=== PATIENT | female | born 1975 | race American Indian/Alaskan Native ===

== ENCOUNTER 2018-02-20 20:45 | Inpatient (IN) | payer MEDICAID ==
[2018-02-20] MEDS ORDERED: Penicillin G Potassium 5 MU in Dextrose 5% In Water 50 ML IV ONE ×2 (22:20→22:22)
[2018-02-20] MEDS: Lactated Ringer's 1,000 ML IV SCH (22:45)
[2018-02-20] MEDS ORDERED: Penicillin G 5 Million Unit Vial IVPB ONE (23:07)
[2018-02-20 23:17] LABS: BASO # 0.1 K/uL (0.0-0.2); BASO % 0.6 % (0.0-2.0); EOS % 0.3 % (0.0-4.0); HEMOGLOBIN 12.6 g/dL (11.0-16.0); LYMPH # 3.3 K/uL (1.0-4.3); MEAN CELL VOLUME 70.8 fL (81.0-99.0); MEAN CORPUSCULAR HGB CONC 33.8 g/dL (33.0-37.0); MEAN PLATELET VOLUME 9.2 fL (7.2-11.7); MONO # 0.8 K/uL (0.0-0.8); MONO % 6.3 % (0.0-10.0); NEUT % 65.8 % (50.0-75.0); NRBC % 0.2 % (0.0-2.0); RBC 5.24 Mil/uL (3.80-5.20); RED CELL DISTRIBUTION WIDTH 14.8 % (11.5-14.5); WHITE BLOOD COUNT 12.1 K/uL (4.8-10.8)
[2018-02-20 23:21] LABS: SQUAMOUS EPITHIAL 2 /hpf (0-5); URINE BACTERIA FEW (<OCC); URINE BILIRUBIN NEGATIVE (NEGATIVE); URINE BLOOD NEGATIVE (NEGATIVE); URINE CLARITY Clear (Clear); URINE COLOR Yellow (YELLOW); URINE GLUCOSE (UA) NORMAL (Normal); URINE PROTEIN NEGATIVE (NEGATIVE); URINE UROBILINOGEN NORMAL mg/dL (0.2-1.0)
[2018-02-20 23:22] LABS: URINE LEUKOCYTE ESTERASE 1+ Leu/uL (Negative)
[2018-02-20 23:29] LABS: ALBUMIN 3.1 g/dL (3.5-5.0); ALT/SGPT 35 U/L (9-52); AST/SGOT 31 U/L (14-36); BLOOD UREA NITROGEN 14 mg/dL (7-17); CALCIUM 9.5 mg/dl (8.6-10.4); GFR NON-AFRICAN AMERICAN > 60; PROTHROMBIN TIME 10.6 SECONDS (9.7-12.2); URIC ACID 5.3 mg/dL (2.2-7.5)
[2018-02-20 23:44] VITALS: BMI 34.7
--- NOTE | 2018-02-21 02:24 | OBHP ---
Datetime: 02/20/2018 22:05 IP Adm Impression: Term, intrauterine IP Adm Impression Other: Advanced cervical dilatation IP Admit Plan: Admit to unit; Initiate labor protocol Admit Comment, IP Provider: ENA diplomatic interpreter/translator ID [id number]. Patient speaks Niuean Creole 42 y.o. , LMP 05/28/17, HARISH 03/04/18, EGA 38w 2d referred from OB clinic from 1700 hours fo r evaluation of elevated BP, 140/90 and 140/92. Patient denies headaches, spots, epigastric or RUQ pa in. This is the first time with elevated BP. Reports (+)BV - this has been throughout the , not new. (+) AFM; denies LOF, VB. Denies Ctx; has sensation of vagina "splitting; ... like the baby i s pressing down, wanting to come out". 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 Parental karyotype normal x 2. ECHO - no structural abnormality. 3) Quantiferon gold (+); CXR(-). 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 P Ob: x 2; both females, both delivered at [facility], [place]. 1997, doesn't remember weight; 201 3, 7lbs. No complications with either delivery. 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 Denies h/o STIs, myomata, ovarian cysts, abnormal Pap PMH: denies PSH: 2016, surgery on neck ..."they removed my thyroid". Denies ever having been on thyroid replac ement therapy. NKDA Meds: not taking vitamins "too hard to swallow" Soc Hx: denies tobacco, illicit drug or EtOH use. x 3 years. Unemployed Fam Hx: Mother alive 62 y.o. DM, HTN. Father - cause unknown. P.E.: as above. WD in NAD. Awake, alert, oriented to time, person and place. Accompanied by dwight wilson Assessment: 42 y.o. P2032, 38w 2d, advanced cervical dilatation. 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 Post wor k up will be necessary. GBS unknown. D/W patient cervical ripening and possible pitocin augmentation. Also D/W patient pain relief options (had epidural with labor and dlivery 2012). Lastly discussed re mote possiblility for delivery. Patient expressed an understanding and agrees with plan for delivery. Category 1 traicng. Clinically stable. BP wnl; no stigmata for pre-eclampsia. Plan: 1) Admit 2) NPO 3) Admission labs, incl pre-eclamptic labs 4) IVFs 5) Cytotec 50 micrograms bucally Q 4h x 2 doses 6) continuous EFM 7) Anticipate vaginal delivery Pelvic Type - PN: Adequate Extremities - PN: Normal Abdomen - PN: Normal Back - PN: Normal Breast - PN: Not Done Lungs - PN: Normal Heart - PN: Normal Thyroid - PN: Not Done Neurologic - PN: Normal HEENT - PN: Normal General - PN: Normal Weight - Estimated: 8lb 8oz Presentation-Admit: Vertex FHR - Baseline A Provider: 140 Membranes, Provider: Intact Contraction Comments Provider: none Comments, ACOG Physical Exam: Abdomen: Gravid. Sof.t Non tender in all quadrants. Fundal height 39 c m. All other systems reviewed and are negative. Gestation - Est Wks by US: 38w 2d IP Hx Assessment: The History has been Reviewed and is Current EGA AdmitDate IP: 38.2 Vital Signs Provider: Reviewed IP Chief Complaint: Signs/Symptoms Gestational HTN NICHD Variability Prov Fetus A: Moderate 6-25bpm NICHD Accel Fetus A IP Provider: 15X15 FHR Category Provider Fetus A: Category I NICHD Decel Fetus A IP Provider: None Dilatation, Provider: 4-5 Effacement, Provider: 30 Station, Provider: -3 Genitourinary Exam: Normal DTRs - PN: Normal
[2018-02-21] MEDS: Penicillin G Potassium 2.5 MU in Dextrose 5% In Water 50 ML IV SCH ×4 (04:00→16:24)
[2018-02-21] MEDS ORDERED: Morphine 1 mg/ml preservative-free Inj(Duramorph) ONE ×2 (07:27→19:32)
[2018-02-21] MEDS ORDERED: Phenylephrine 10 mg/ml Inj ONE (07:34)
[2018-02-21] MEDS ORDERED: Propofol 10 mg/ml Inj (20 ML) ONE (07:34)
[2018-02-21] MEDS ORDERED: Succinylcholine Chloride 20 mg/ml Syr (5 ml) IV ONE (08:15)
--- NOTE | 2018-02-21 10:17 | OBPN ---
Datetime: 02/21/2018 10:12 IP Progress Impression: Normal progression of labor IP Informed Consent Obtain: Vaginal Delivery IP Procedures: Sterile Vag Exam IP Progress Plan: Continue present management FHR - Baseline A Provider: 140 IP Progress Note Comment: patient seen and examined FHR Category 1, irreg contractions, no change on SVE, will give another cytotec 50mcg buccal for f urther ripening will consider pitocin for augmentation Vital Signs Provider: Reviewed; Within Normal Limits FHR Category Provider Fetus A: Category I NICHD Decel Fetus A IP Provider: None Datetime: 02/20/2018 22:05 Membranes, Provider: Intact Contraction Comments Provider: none Gestation - Est Wks by US: 38w 2d Weight - Estimated: 8lb 8oz Presentation-Admit: Vertex NICHD Accel Fetus A IP Provider: 15X15 NICHD Variability Prov Fetus A: Moderate 6-25bpm Dilatation, Provider: 4-5 Effacement, Provider: 30 Station, Provider: -3
[2018-02-21] MEDS ORDERED: Oxytocin 30 UNIT 30 UNITS/500 ML BAG IV ONE ×2 (15:08→16:37)
--- NOTE | 2018-02-21 16:10 | OBPN ---
Datetime: 02/21/2018 16:06 IP Progress Impression: Normal progression of labor IP Informed Consent Obtain: Vaginal Delivery IP Procedures: Sterile Vag Exam IP Progress Plan: Continue present management; Augmentation FHR - Baseline A Provider: 140 IP Progress Note Comment: s/p 2 cytotec buccal 50mcg x 1 patient received clears will start pitocin for augmentation Vital Signs Provider: Reviewed; Within Normal Limits NICHD Accel Fetus A IP Provider: 15X15 FHR Category Provider Fetus A: Category I NICHD Decel Fetus A IP Provider: None
[2018-02-21] MEDS: Lactated Ringer's 1,000 ML IV SCH (16:30)
[2018-02-21] MEDS ORDERED: Lactated Ringer's 1,000 ML IV ONE (17:49)
[2018-02-21] MEDS ORDERED: ceFAZolin 2 GM in Sodium Chloride 0.9% 100 ML IVPB ONE (17:49)
[2018-02-21] MEDS ORDERED: Sodium Citrate/Citric Acid 15 ml Sol PO ONE (17:49)
--- NOTE | 2018-02-21 17:50 | OBPN ---
Datetime: 02/21/2018 17:44 IP Progress Impression: Arrest of dilatation/descent; Non-reassuring heart rate IP Informed Consent Obtain: Section Delivery; Risks, Benefits and Alternatives Discussed IP Procedures: Sterile Vag Exam IP Progress Plan: Continue present management; Deliver- Section FHR - Baseline A Provider: 145 IP Progress Note Comment: patient was started on pitocin and have recurrent late decelerations counseled patient on risks and benefits and advised devliery via CS due to recurrent lates and [place] k of progression in labor american sign language interpreter [id number] used patient and partner expressed understanding, all questions answered prep for OR Dilatation, Provider: 4-5 Effacement, Provider: 50 Station, Provider: -3 NICHD Decel Fetus A IP Provider: Late
[2018-02-21] MEDS ORDERED: ceFAZolin 1 gm FROZEN Premix 0 GM/0 ML ML IVPB ONE (18:35)
[2018-02-21] MEDS ORDERED: Sodium Citrate/Citric Acid 15 ml Sol ONE (18:36)
[2018-02-21] MEDS ORDERED: Oxytocin 20 units in LR 2,000 ML IV ONE (18:37)
[2018-02-21] MEDS ORDERED: cefOXitin IV 2 gm in Saline 2 GM/50 ML BAG IVPB ONE (18:38)
[2018-02-21] MEDS: cefOXitin IV 2 gm in Saline 2 GM in Sodium Chloride 0.9% 50 ML IV SCH (19:30)
[2018-02-21] MEDS ORDERED: Bupivacaine HCl 15 mg/2 ml Spinal Inj ONE (19:31)
[2018-02-21] MEDS ORDERED: Oxycodone/Acetaminophen 5/325 mg Tab PO PRN (20:50)
--- NOTE | 2018-02-21 21:09 | OBDS ---
MATERNAL INFORMATION Estimated Blood Loss (ml): 800 Provider Comments: primary LTCS via pfannensteil skin incision female born at 8:03pm with apgars 8/9 weighting 8lb 5oz. fluid intake 1500cc, EBL 800cc. ur ine output 200cc. counts correct x 3 [id number] DICTATION LABOR SUMMARY EDC: 03/04/2018 00:00 No. Babies in Womb: 1 LABOR INFORMATION Cervical Ripening Agents: Cytotec @ (Annotations: 50 MCG PO) Group B Beta Strep: Done, Result Unknown STAGES OF LABOR Stage 3 hrs: 0 Stage 3 min: 2 CSECTION DELIVERY Primary Indication: Nonreassuring Status Secondary Indication: Secondary Arrest of Dilatation CSection Incision: Lower Uterine Transverse BABY A INFORMATION Delivery Date/Time: 02/21/2018 20:03 Method of Delivery: Born in Route : No Forceps: N/A Vacuum Extraction: N/A Shoulder Dystocia : No SHOULDER DYSTOCIA BABY A Infant Delivery Date/Time: 02/21/2018 20:03 PRESENTATION/POSITION BABY A Presentation: Cephalic Cephalic Presentation: Vertex Vertex Position: Right Occipital Anterior Breech Presentation: N/A PLACENTA INFORMATION BABY A Placenta Delivery Time : 02/21/2018 20:05 Placenta Method of Delivery: Manual Removal Placenta Status: Delivered SCORES BABY A Heart Rate 1 min: >100 bpm Resp Effort 1 min: Slow, Irregular Reflex Irritability 1 min: Cough or Sneeze or Pulls Away Muscle Tone 1 min: Active Motion Color 1 min: Body [place], Extremities Blue Resuscitation Effort 1 min: Tactile Stimulation SCORE 1 MIN: 8 Heart Rate 5 min: >100 bpm Resp Effort 5 min: Good Cry Reflex Irritability 5 min: Cough or Sneeze or Pulls Away Muscle Tone 5 min: Active Motion Color 5 min: Body [place], Extremities Blue SCORE 5 MIN: 9 INFORMATION BABY A Gestational Age at Delivery: 38.3 Gestational Status: Term Outcome : Liveborn Infant Condition : Stable Sex: Female IDENTIFICATION/MEDS BABY A ID Band Number: [id number] Sensor Number: [id number] WEIGHT/LENGTH BABY A Infant Birthweight (gms): 3775 Weight (lb): 8 Weight (oz): 5 Infant Length Inches: 20.00 Length cms: 50.8 CORD INFORMATION BABY A No. Cord Vessels: 3 Nuchal Cord : N/A Cord Blood Taken: Yes ASSESSMENT BABY A Complications: None Physical Findings at Delivery: Within Normal Limits Infant Respirations: Appears Normal Heavy Duty Custodian/ALS Called : No Transferred To: Nursery
[2018-02-22] MEDS: cefOXitin IV 2 gm in Saline 2 GM in Sodium Chloride 0.9% 50 ML IV SCH ×2 (02:22→09:51)
[2018-02-22] MEDS: Simethicone 80 mg Chewtab PO SCH ×5 (04:31→22:14)
[2018-02-22 09:15] LABS: HEMOGLOBIN 11.1 g/dL (11.0-16.0); MEAN CELL VOLUME 70.7 fL (81.0-99.0); MEAN CORPUSCULAR HEMOGLOBIN 24.4 pg (27.0-31.0); MEAN CORPUSCULAR HGB CONC 34.5 g/dL (33.0-37.0); MEAN PLATELET VOLUME 8.7 fL (7.2-11.7); RBC 4.55 Mil/uL (3.80-5.20); RED CELL DISTRIBUTION WIDTH 14.7 % (11.5-14.5); WHITE BLOOD COUNT 12.1 K/uL (4.8-10.8)
[2018-02-22] MEDS: Prenatal Multivit/Folic Acid/Iron Tab PO SCH (09:28)
--- NOTE | 2018-02-22 09:30 | OBPPN ---
Datetime: 02/22/2018 09:26 PP Nausea Prov: Denies PP Flatus Prov: No PP BM Prov: No PP Breasts Prov: Normal PP Heart Prov: Normal PP Lungs Prov: Normal PP Abdomen/Uterus Prov: Normal PP Lochia Prov: Normal PP Vulva/Perineum Prov: Normal PP CVA Tenderness Prov: Normal PP Extremities Prov: Normal PP Impression Prov: Normal progression PP Plan Prov: Continue present management PP Progress Note Prov: PT DOING WELL NO COMPLAINTS. TOLERATING PO DIET, DENIES N/V. LABS: HGBS 12.6 A/P: S/P PPD#1 1) VSS: AFEBRILE. 2) TOLERATING PO DIET 3) AMBULATING. 4) CONTINUE ROUTINE CARE. IP PP Procedures: None Signature: Helga DUNN
[2018-02-22] MEDS ORDERED: cefOXitin IV 2 gm in Saline 2 GM/50 ML BAG IVPB ONE (09:39)
[2018-02-22] MEDS ORDERED: DiphenhydrAMINE 50 mg/ml Inj IVP STA (13:14)
[2018-02-22] MEDS: Oxycodone/Acetaminophen 5/325 mg Tab PO PRN (19:42)
[2018-02-23] MEDS ORDERED: DiphenhydrAMINE 50 mg/ml Inj IVP PRN (00:10)
[2018-02-23] MEDS: Oxycodone/Acetaminophen 5/325 mg Tab PO PRN ×2 (03:45→09:43)
--- NOTE | 2018-02-23 08:27 | OBPPN ---
Datetime: 02/23/2018 08:24 PP Pain Prov: Within normal limits PP Nausea Prov: Denies PP Flatus Prov: Yes PP BM Prov: Yes PP Lungs Prov: Normal PP Abdomen/Uterus Prov: Normal PP Lochia Prov: Normal PP CVA Tenderness Prov: Normal PP Extremities Prov: Normal PP C/S Incision Prov: Normal PP Comments Phys Exam Prov: ABD: Soft, NT, Insicion clean and dry EXT: No calf tendenress PP Impression Prov: Normal progression PP Plan Prov: Continue present management PP Progress Note Prov: POD# 2 Pt doing well. No complaints today. F/U CBC Encourage ambulation Continue PO care IP PP Procedures: None Vital Signs Provider PP: Reviewed
[2018-02-23 08:47] LABS: BASO % 0.3 % (0.0-2.0); EOS # 0.1 K/uL (0.0-0.7); EOS % 0.8 % (0.0-4.0); HEMOGLOBIN 10.3 g/dL (11.0-16.0); LYMPH # 2.6 K/uL (1.0-4.3); MEAN CELL VOLUME 71.1 fL (81.0-99.0); MEAN CORPUSCULAR HGB CONC 33.8 g/dL (33.0-37.0); MEAN PLATELET VOLUME 8.7 fL (7.2-11.7); MONO % 7.7 % (0.0-10.0); NEUT # 9.4 K/uL (1.8-7.0); NEUT % 71.2 % (50.0-75.0); RBC 4.29 Mil/uL (3.80-5.20); RED CELL DISTRIBUTION WIDTH 14.8 % (11.5-14.5); WHITE BLOOD COUNT 13.2 K/uL (4.8-10.8)
[2018-02-23 09:10] VITALS: RESP 18
[2018-02-23] MEDS: Simethicone 80 mg Chewtab PO SCH ×4 (09:41→21:08)
[2018-02-23] MEDS: Prenatal Multivit/Folic Acid/Iron Tab PO SCH (09:41)
[2018-02-24] MEDS: Oxycodone/Acetaminophen 5/325 mg Tab PO PRN (06:21)
--- NOTE | 2018-02-24 08:00 | OP ---
PROCEDURE DATE: 02/21/2018 ANESTHESIOLOGIST: Dr. Reynolds. ATTENDING SURGEON: Stephani Wei DO BATTERY CONTAINER TESTER ALUMINUM: Dr. Salinas. REASON FOR SECTION: Nonreassuring heart tracing, remote from delivery, arrest of dilation. Primary via Pfannenstiel skin incision was performed, viable female born at 8:03 p.m. with Apgars of 8 and 9 in GABE position. Baby was weighing 8 pounds and 5 ounces. FLUID INTAKE DURING PROCEDURE: 1500 mL. ESTIMATED BLOOD LOSS: 800 mL. URINE OUTPUT: 200 mL. All laps, sponge, and needle counts were correct x3. DESCRIPTION OF PROCEDURE: The patient was taken to the operating room, where anesthesia was administered and found adequate. She was prepped and draped in normal sterile fashion in supine position with leftward tilt. Pfannenstiel skin incision was made to the scalpel and carried down to underlying fascia with Bovie. Superior aspect of the fascial incision was grasped with two Estefany clamps and the rectus muscle was dissected off using Bovie. Similar procedure performed inferiorly. Muscle was bluntly and further with gentle traction. Bladder blade placed. Uterus identified, hysterotomy performed with scalpel. Infant's head was brought to the incision. Infant was delivered without difficulty. Mouth and nose were suctioned. Cord was clamped and cut. Infant handed to awaiting Pediatric Team. Placenta was removed and moist laps were used to assure complete removal of placental membranes. Uterus was removed. The uterine incision was reapproximated with 0-Monocryl in a running lock fashion with good hemostasis. Along the left aspect, two [id number] sutures were reapplied. Surgicel was also applied. The uterus was returned to the abdominal cavity. Irrigation had been performed prior to that. Muscle was reapproximated using 2-0 Monocryl in running fascia with good hemostasis. Fascia was reapproximated with 0-Vicryl in a running fashion with good hemostasis. Subcutaneous fat closed with 0 plain. The skin was closed with 3-0 Monocryl. All laps, sponge, and needle counts were correct x3. The patient tolerated the procedure well and was taken to recovery in stable condition. Stephani Wei DO [facility] # [id number]
[2018-02-24] MEDS ORDERED: Influenza Vaccine 60 MCG/0.5 ML SYR (3 yr & up) IM ONE (08:22)
--- NOTE | 2018-02-24 08:39 | OBDCSUM ---
Datetime: 02/24/2018 08:36 Discharged to, Provider: Home Follow up at, Provider: antonette duarte Disch Instr Activity: Normal activity Disch Instr Diet: Regular Discharge Instructions, Provider: Routine instructions given Discharge Diagnosis, Provider: Term Delivered Discharge Time: 02/24/2018 08:36 Follow up in weeks, Provider: 2 weeks Disch Referrals: None Disch Activity Restrictions: No lifting; No driving; No sexual activity; Nothing in vagina - Interco urse, tampons, douche Contraception after Delivery: Undecided
--- NOTE | 2018-02-24 08:39 | OBPPN ---
Datetime: 02/24/2018 08:33 PP Pain Prov: Within normal limits PP Nausea Prov: Denies PP Flatus Prov: Yes PP Breasts Prov: Not Done PP Heart Prov: Normal PP Lungs Prov: Not Done PP Abdomen/Uterus Prov: Normal PP Lochia Prov: Not Done PP Vulva/Perineum Prov: Not Done PP CVA Tenderness Prov: Not Done PP Extremities Prov: Not Done PP C/S Incision Prov: Normal PP Progress Prov: Normal PP Impression Prov: Normal progression PP Plan Prov: Continue present management; Discharge PP Progress Note Prov: multigravida s/p primary CS due to NRFHT, remote from delivery, arrest of dil ation vitals stable, afebrile, labs reviewed and normal abdomen is soft, low transverse incision with steristrips in place clean/dry/intact denies GRAVES CP SOB N/V tolerating diet, voiding and passing flatus counseled patient to follow up in 2 weeks for incision check and post visit in 6 weeks DC home language line [phone] Vital Signs Provider PP: Reviewed; Within Normal Limits
[2018-02-24] MEDS: Simethicone 80 mg Chewtab PO SCH (09:33)
[2018-02-24] MEDS: Prenatal Multivit/Folic Acid/Iron Tab PO SCH (09:34)
[2018-02-24 09:37] VITALS: BP 142/90; PULSE 100; TEMP 97.5; O2SAT 98
== END 2018-02-24 12:20 | disposition home or self-care (01) | DRG 540 ==
LOC: C.EROB 20:45 → C.4D 22:18 → C.4M 02-21 23:25
PROVIDERS: ADMIT Obstetrics & Gynecology; ATTEND Obstetrics & Gynecology
PROC: 10D00Z1 Extraction of Products of Conception, Low, Open Approach (ICD-10-PCS; principal; 2018-02-21)
DX: O76 Abnormality in fetal heart rate and rhythm complicating labor and delivery (principal); Q91.3 Trisomy 18, unspecified; Z37.0 Single live birth; O35.1XX0 Maternal care for (suspected) chromosomal abnormality in fetus, not applicable or unspecified; O75.89 Other specified complications of labor and delivery; O62.1 Secondary uterine inertia; O13.4 Gestational [pregnancy-induced] hypertension without significant proteinuria, complicating childbirth; Z3A.38 38 weeks gestation of pregnancy